=== PATIENT | male | born 1985 | race Caucasian/White ===

== ENCOUNTER 2022-12-03 14:00 | Emergency (ER) | payer OTHER ==
[2022-12-03] MEDS ORDERED: Fluorescein 1 MG Ophth Strip EYERT ONE (14:12)
[2022-12-03] MEDS ORDERED: Proparacaine 0.5% Ophth Soln 15 ML Bottle EYERT STA (14:13)
[2022-12-03] MEDS ORDERED: Gentamicin 0.3% Ophth Soln 5 ML Bottle EYERT SCH (17:00)
== END 2022-12-03 15:05 | disposition home or self-care (01) ==
LOC: JD.ED 14:00
DX: T15.01XA Foreign body in cornea, right eye, initial encounter (principal); F17.210 Nicotine dependence, cigarettes, uncomplicated
CPT/HCPCS: 65222; 99283; A9270; 65205; J3490